=== PATIENT | male | born 1940 | race African-American/Black ===

== ENCOUNTER 2025-03-15 14:30 | Emergency (ER) | payer MEDICARE, MEDICAID ==
[~2025-03-15] VITALS: Ht 170.2 cm; Wt 79.0 kg
[2025-03-15 14:42] VITALS: TEMP 36.6; O2SAT 100
[2025-03-15 15:49] LABS: CLARITY URINE TURBID (CLEAR); COLOR URINE ORANGE (YELLOW); GLUCOSE URINE NEGATIVE (NEGATIVE); KETONES URINE NEGATIVE (NEGATIVE); LEUKOCYTE ESTERASE URINE 2+ (NEGATIVE); NITRITE URINE NEGATIVE (NEGATIVE); OCCULT BLOOD URINE 3+ (NEGATIVE); PH URINE 5.5 (4.5-8.0); PROTEIN URINE 2+ (NEGATIVE); SPECIFIC GRAVITY URINE 1.014 (1.005-1.030); UROBILINOGEN URINE 0.2 E.U./dL (0.2-1.0)
[2025-03-15 15:57] LABS: BACTERIA URINE 2+; RBC URINE TNTC /hpf (0-2); SQUAMOUS EPITHELIAL CELL URINE NONE SEEN /lpf (RARE/1+); WBC URINE TNTC /hpf (0-2); YEAST URINE NONE SEEN
[2025-03-15 16:59] LABS: HEMATOCRIT. 29.1 % (42.0-52.0); HEMOGLOBIN. 9.7 g/dL (14.0-18.0); MEAN PLATELET VOLUME 7.8 fl (7.4-10.4); PLATELET 262 x1000/uL (130-400); RED BLOOD CELL COUNT 2.99 mill/uL (4.7-6.1); RED CELL DISTRIBUTION WIDTH 15.4 % (11.6-14.6)
[2025-03-15 17:12] LABS: CREATININE 1.6 mg/dL (0.6-1.3); UREA NITROGEN BLOOD 34.0 mg/dL (9-23)
[2025-03-15 17:15] LABS: EOSINOPHILS % MANUAL 5.0 % (0.0-5.0); LYMPHOCYTES % MANUAL 17.0 % (20.0-50.0); MONOCYTES % MANUAL 4.0 % (2.0-8.0); NEUTROPHILS % MANUAL 74.0 % (45.0-75.0); PLATELET ESTIMATE NORMAL
[2025-03-15] MEDS ORDERED: CEFP200T13 MT (18:10)
[2025-03-15] MEDS: LIDOCAINE HCL 1% 20ML VIAL INFIL ONE (18:21)
[2025-03-15] MEDS: CEFTRIAXONE SODIUM 1G VIAL IM ONE (18:21)
[2025-03-15 18:23] VITALS: BP 129/59; PULSE 76; RESP 18; O2SAT 100
== END 2025-03-15 18:33 | disposition home or self-care (01) ==
LOC: ER 14:30
DX: N30.01 Acute cystitis with hematuria (principal); I10 Essential (primary) hypertension
CPT/HCPCS: 99283; 80048; 81003; 85025; 87086; 36415; 96372; J0696; J2003